=== PATIENT | female | born 1980 | race American Indian/Alaskan Native ===

== ENCOUNTER 2018-05-27 17:23 | Emergency (ER) | payer SELFPAY ==
[2018-05-27 17:44] VITALS: BP 113/56
[2018-05-27 18:14] LABS: Bilirubin,Urine NEG (Negative); Blood,Urine NEG (Negative); Color,Urine Yellow (Yellow); Mucus,Urine FEW /HPF; Protein,Urine <15 mg/dL mg/dL (Negative); Urobilinogen,Urine < 2.0 mg/dL (<2.0)
--- NOTE | 2018-05-27 20:19 | Cat Scan Report ---
FINAL REPORT PROCEDURE: CT ABDOMEN PELVIS WO CON TECHNIQUE: Computerized axial tomography of the abdomen and pelvis was performed without intravenous contrast. This study is performed without intravascular contrast material and its sensitivity for ab dominal and pelvic pathology, including neoplasms, inflammation, abscess, free fluid, thrombosis, art erial dissection and infarction, is reduced compared with a contrast enhanced study. HISTORY: left flank/abd pain COMPARISON: No prior studies are available for comparison. FINDINGS: None liver, spleen, pancreas and adrenal glands are within normal limits. Bilateral kidneys are free of any calculi or hydronephrosis. Left kidney demonstrates a small hyperdense lesion measuring 0.4 ce ntimeters in midpole. A urinary bladder is empty. Aorta is of normal caliber. Mild degree free fluid is noted in the pelvic cavity. There is no free air. Gallbladder is unremarkable. Small bowel loops a re within normal limits. Appendix is normal. Vertebral height is normal. Uterus is retroverted. 4.1 x 4.2 centimeter mixed density lesion is noted in the left adnexal region which demonstrates cystic co mponent anteriorly and hyperdense component posteriorly. Mild degree of hyperdensity is also noted in the cul de sac measuring 2.5 x 0.7 centimeters. IMPRESSION: Pelvic findings are most consistent with a hemorrhagic cyst in the left adnexal region with hemorrhag ic free fluid in the pelvic cavity. Uterus is retroverted. Ultrasound evaluation is recommended..
--- NOTE | 2018-05-27 20:28 | Emergency Department Report ---
Blank Doc - Documentation Documentation: This is a 37-year-old female nontoxic, well nourished in appearance, no acute signs of distress presents to the ED with c/o of right upper abdominal and right flank pain. During interview, patient became very upset about "nurse" and wants to leave AMA. Patient was spoken with about risk factors and complications such as due to the symptoms of abdominal pain and flank pain but patient refused. I tried very hard and apologized to the patient about "attitude of the nurse" and stated to her that we can have other pediatrician/medical doctor to see patient but patient still refused. I was not unable to exam patient as she refused. Patient signed AMA form. At time of signing AMA form, the patient does not seem toxic or ill in appearance. No acute signs of distress noted. No further questions noted by the patient.
== END 2018-05-27 20:14 | disposition left against medical advice (07) ==
LOC: ED 17:23
DX: R10.9 Unspecified abdominal pain (principal); Z53.21 Procedure and treatment not carried out due to patient leaving prior to being seen by health care provider
CPT/HCPCS: 74176; 81001